=== PATIENT | male | born 1940 | race Caucasian/White ===

== ENCOUNTER 2017-08-13 13:39 | Emergency (ER) | payer MEDICARE ==
[~2017-08-13] VITALS: Ht 182.9 cm; Wt 86.0 kg
[2017-08-13 16:54] VITALS: BP 140/80
== END 2017-08-13 16:20 | disposition home or self-care (01) ==
LOC: ED 13:39
DX: M79.602 Pain in left arm (principal); S42.355D Nondisplaced comminuted fracture of shaft of humerus, left arm, subsequent encounter for fracture with routine healing; Z98.890 Other specified postprocedural states; M25.552 Pain in left hip